=== PATIENT | male | born 1950 | race Two or more races ===

== ENCOUNTER 2020-12-18 12:42 | Inpatient (IN) | payer MEDICARE, MEDICAID ==
[~2020-12-18] VITALS: Ht 182.9 cm; Wt 99.8 kg
[2020-12-18] MEDS ORDERED: SODIUM CHLORIDE 0.9% 1,000 ML IV ONE (13:00)
[2020-12-18 14:11] LABS: BASOPHILS % 0.3 % (0.0-2.0); EOSINOPHILS % 0.4 % (0.0-5.0); HEMATOCRIT. 45.4 % (42.0-52.0); HEMOGLOBIN. 14.9 g/dL (14.0-18.0); LYMPHOCYTES % 17.9 % (20.0-50.0); MEAN CORPUSCULAR HEMOGLOBIN 29.6 pg (28.0-32.0); MEAN CORPUSCULAR VOLUME 90.7 fL (80.0-94.0); MEAN PLATELET VOLUME 8.1 fl (7.4-10.4); MONOCYTES % 4.9 % (2.0-8.0); NEUTROPHILS % 76.5 % (40.0-76.0); PLATELET 192 x1000/uL (130-400); RED BLOOD CELL COUNT 5.01 mill/uL (4.7-6.1); RED CELL DISTRIBUTION WIDTH 15.3 % (11.6-14.6)
[2020-12-18 14:15] LABS: PROTHROMBIN TIME 11.2 sec (9.6-11.0)
[2020-12-18 14:16] LABS: CHLORIDE 111 mEq/L (98-107)
[2020-12-18] MEDS ORDERED: ASPIRIN 300MG SUPP PR ONE (15:30)
[2020-12-18] MEDS ORDERED: MORPHINE SULFATE 2 MG/ML CPJ (NOT FOR IM USE) IV PRN (17:00)
[2020-12-18] MEDS ORDERED: MAGNESIUM/ALUMINUM HYDROXIDE/SIMETHICONE 30ML UDC PO PRN (17:00)
[2020-12-18] MEDS ORDERED: GUAIFENESIN 200MG/10ML SUGAR FREE UDC PO PRN (17:00)
[2020-12-18] MEDS ORDERED: LORAZEPAM 2MG/ML CPJ IV PRN (17:00)
[2020-12-18] MEDS ORDERED: DIPHENHYDRAMINE 50MG/ML VIAL IV PRN (17:00)
[2020-12-18] MEDS ORDERED: IPRATROPIUM/ALBUTEROL 0.5-3(2.5)MG/3ML NEB HHN PRN (17:00)
[2020-12-18] MEDS ORDERED: ONDANSETRON HCL 4MG/2ML INJ IV PRN (17:00)
[2020-12-18] MEDS ORDERED: ACETAMINOPHEN 325MG TABLET PO PRN (17:00)
[2020-12-18] MEDS ORDERED: DOCUSATE SODIUM 100MG CAPSULE PO PRN (17:00)
[2020-12-18] MEDS ORDERED: HYDROCODONE/ACETAMINOPHEN 5/325MG TABLET PO PRN (17:00)
[2020-12-18] MEDS: DEXT 5%/0.45% NACL 1000ML 1,000 ML IV SCH (17:13)
[2020-12-18] MEDS ORDERED: NALOXONE HCL 0.4MG/ML VIAL IV PRN (17:15)
[2020-12-18 23:00] VITALS: BP 180/85
[2020-12-19 00:03] VITALS: BP 180/85
[2020-12-19] MEDS: ENOXAPARIN 40MG/0.4ML SYR SUBCUT SCH ×2 (00:16→22:00)
[2020-12-19] MEDS: SODIUM CHLORIDE 0.9% INJ 3ML FLUSH IVF SCH ×4 (00:16→22:00)
[2020-12-19] MEDS: HYDRALAZINE 20MG/ML VIAL IV PRN ×2 (00:17→22:00)
[2020-12-19 04:00] VITALS: BP 166/76
[2020-12-19 08:00] VITALS: BP 122/84
[2020-12-19] MEDS ORDERED: ASPIRIN 81MG EC TABLET PO SCH (09:00)
[2020-12-19] MEDS: DEXT 5%/0.45% NACL 1000ML 1,000 ML IV SCH (09:01)
[2020-12-19 09:10] LABS: BASOPHILS % 0.8 % (0.0-2.0); EOSINOPHILS % 2.5 % (0.0-5.0); HEMATOCRIT. 42.8 % (42.0-52.0); HEMOGLOBIN. 14.2 g/dL (14.0-18.0); LYMPHOCYTES % 29.5 % (20.0-50.0); MEAN CORPUSCULAR HEMOGLOBIN 29.9 pg (28.0-32.0); MEAN CORPUSCULAR VOLUME 89.9 fL (80.0-94.0); MEAN PLATELET VOLUME 7.6 fl (7.4-10.4); MONOCYTES % 6.4 % (2.0-8.0); NEUTROPHILS % 60.8 % (40.0-76.0); PLATELET 174 x1000/uL (130-400); RED BLOOD CELL COUNT 4.76 mill/uL (4.7-6.1)
[2020-12-19 09:23] LABS: CHLORIDE 111 mEq/L (98-107)
[2020-12-19] MEDS ORDERED: POTASSIUM CHLORIDE 20MEQ TABLET SR PO NR (09:45)
[2020-12-19 10:19] LABS: T4 FREE 1.19 ng/dL (0.76-1.46)
[2020-12-19 12:00] VITALS: BP 155/93
[2020-12-19 16:00] VITALS: BP 191/86
[2020-12-19 16:47] LABS: CREATINE KINASE MB FRACTION 9.4 ng/mL (0.5-3.6)
[2020-12-19 16:57] LABS: CREATINE KINASE 1328 IU/L (39-308)
[2020-12-19] MEDS: CLONIDINE 0.1MG TABLET PO PRN (18:11)
[2020-12-19 20:43] VITALS: BP 175/75
[2020-12-19] MEDS: CLOPIDOGREL 75MG TABLET PO SCH (22:06)
[2020-12-20 00:07] VITALS: BP 156/72
[2020-12-20 00:43] LABS: CREATINE KINASE MB FRACTION 7.8 ng/mL (0.5-3.6)
[2020-12-20 00:53] LABS: CREATINE KINASE 1131 IU/L (39-308)
[2020-12-20] MEDS: DEXT 5%/0.45% NACL 1000ML 1,000 ML IV SCH ×2 (02:20→19:00)
[2020-12-20 04:00] VITALS: BP 162/66
[2020-12-20] MEDS: CLONIDINE 0.1MG TABLET PO PRN ×2 (06:10→21:01)
[2020-12-20] MEDS: SODIUM CHLORIDE 0.9% INJ 3ML FLUSH IVF SCH ×3 (06:10→22:00)
[2020-12-20 08:15] LABS: CREATINE KINASE 919 IU/L (39-308)
[2020-12-20 08:16] LABS: CREATINE KINASE MB FRACTION 6.5 ng/mL (0.5-3.6)
[2020-12-20 08:20] VITALS: BP 146/72
[2020-12-20] MEDS: ASPIRIN 81MG TABLET PO SCH (09:00)
[2020-12-20] MEDS: CLOPIDOGREL 75MG TABLET PO SCH (09:00)
[2020-12-20 12:20] VITALS: BP 139/82
[2020-12-20] MEDS ORDERED: GADOTERATE MEGLUMINE 5 MMOL/10 ML VIAL IV ONE (13:32)
[2020-12-20 16:06] VITALS: BP 129/75
[2020-12-20 20:39] VITALS: BP 175/69
[2020-12-20] MEDS: ENOXAPARIN 30MG/0.3ML SYR SUBCUT SCH (21:01)
[2020-12-20] MEDS: ATORVASTATIN CALCIUM 40MG TABLET PO SCH (21:01)
[2020-12-20] MEDS ORDERED: IOHEXOL-350 100 ML BOTTLE ONE (23:20)
[2020-12-21] VITALS (7 sets, daily range): BP systolic 110–164; BP diastolic 53–75
[2020-12-21] MEDS: SODIUM CHLORIDE 0.9% INJ 3ML FLUSH IVF SCH ×3 (05:26→21:49)
[2020-12-21] MEDS: ENOXAPARIN 30MG/0.3ML SYR SUBCUT SCH ×2 (09:02→21:48)
[2020-12-21] MEDS: ASPIRIN 81MG TABLET PO SCH (09:02)
[2020-12-21] MEDS: CLOPIDOGREL 75MG TABLET PO SCH (09:02)
[2020-12-21] MEDS ORDERED: LOSARTAN POTASSIUM 50 MG TABLET PO SCH (09:30)
[2020-12-21] MEDS: ATORVASTATIN CALCIUM 40MG TABLET PO SCH (21:48)
[2020-12-21] MEDS: DEXT 5%/0.45% NACL 1000ML 1,000 ML IV SCH (21:49)
[2020-12-21] MEDS: CLONIDINE 0.1MG TABLET PO PRN (21:54)
== END 2020-12-21 22:50 | disposition short-term general hospital (02) | DRG 64 ==
LOC: ER 12:42 → EDBEDREQ 16:26 → ENRESERV 21:45 → 6WST 23:10
PROVIDERS: ADMIT Internal Medicine; ATTEND Internal Medicine
PROC: 4A10X4Z Monitoring of Central Nervous Electrical Activity, External Approach (ICD-10-PCS; principal; 2020-12-20)
DX: I63.9 Cerebral infarction, unspecified (principal); G93.41 Metabolic encephalopathy; K72.00 Acute and subacute hepatic failure without coma; T74.01XA Adult neglect or abandonment, confirmed, initial encounter; M62.82 Rhabdomyolysis; I42.9 Cardiomyopathy, unspecified; J98.11 Atelectasis; I65.22 Occlusion and stenosis of left carotid artery; E87.6 Hypokalemia; I11.9 Hypertensive heart disease without heart failure; R74.01 Elevation of levels of liver transaminase levels; E78.5 Hyperlipidemia, unspecified; Z20.822 Contact with and (suspected) exposure to COVID-19; I45.10 Unspecified right bundle-branch block; R62.7 Adult failure to thrive; Z68.29 Body mass index [BMI] 29.0-29.9, adult
CPT/HCPCS: 36415; 70498; 70544; 70547; 70551; 71045; 80053; 80061; 82550; 82553; 83036; 83605; 83880; 84439; 84443; 84484; 85025; 85379; 87426; 92610; 93005; 93306; 93970; 95816; 97162; 99291; A9577; J0360; J1650; J7030; J7042; Q9967